=== PATIENT | female | born 1990 | race Caucasian/White ===

== ENCOUNTER 2017-06-21 21:29 | Emergency (ER) | payer OTHER ==
[~2017-06-21] VITALS: Ht 165.1 cm; Wt 75.1 kg
[2017-06-21 21:31] VITALS: BP 103/66
== END 2017-06-21 22:34 | disposition home or self-care (01) ==
LOC: ED 22:05
DX: M79.661 Pain in right lower leg (principal)
CPT/HCPCS: 99284

== ENCOUNTER 2017-09-30 10:32 | Inpatient (IN) | payer OTHER ==
[~2017-09-30] VITALS: Ht 165.1 cm; Wt 84.0 kg
[2017-09-30] MEDS ORDERED: OXYTOCIN 30U/ 0.9% NaCL 500ML 500 ML IV ONE (10:53)
[2017-09-30] MEDS ORDERED: ONDANSETRON 2MG/ML, 2ML IVPush PRN (11:00)
[2017-09-30] MEDS ORDERED: FENTANYL PF 100 MCG/2ML IVPush PRN (11:00)
[2017-09-30] MEDS ORDERED: FENTANYL PF 100 MCG/2ML IV PRN (11:00)
[2017-09-30] MEDS ORDERED: TERBUTALINE 1 MG/ML, 1ML IVPush PRN (11:00)
[2017-09-30] MEDS: LACTATED RINGERS 1,000 ML IV SCH ×2 (11:25→20:08)
[2017-09-30 11:45] LABS: MEAN CORPUSCULAR HEMOGLOBIN 29.6 pg (27.0-34.8); MEAN CORPUSCULAR HGB CONC 34.8 g/dL (32.4-35.8); MEAN CORPUSCULAR VOLUME 85.1 fL (80-100); RED BLOOD COUNT 5.02 x10^6/uL (3.82-5.3); RED CELL DISTRIBUTION WIDTH 13.5 % (9.6-15.2)
[2017-09-30] MEDS: D5%-LACTATED RINGERS 1,000 ML IV SCH ×2 (12:08→20:08)
[2017-09-30] MEDS ORDERED: MISOPROSTOL 200 MCG TABLET ONE (13:01)
[2017-09-30] MEDS ORDERED: OXYTOCIN 30U/ 0.9% NaCL 500ML 500 ML ONE ×2 (13:01→21:54)
[2017-09-30] MEDS ORDERED: LIDOCAINE/PF 1%, 30ML ONE (13:01)
[2017-09-30] MEDS ORDERED: NEWBORN KIT ONE (13:01)
[2017-09-30] MEDS ORDERED: TRANEXAMIC ACID 100 MG/ML, 10ML ONE (13:02)
[2017-09-30 13:13] LABS: BASOPHILS # (AUTO) 0.04 x10^3/uL (0-0.1); BASOPHILS % (AUTO) 1 % (0-1); EOSINOPHILS # (AUTO) 0.01 x10^3/uL (0-0.4); EOSINOPHILS % (AUTO) 0 % (1-7); LYMPHOCYTES # (AUTO) 1.73 x10^3/uL (1-3.4); LYMPHOCYTES % (AUTO) 25 % (22-44); MD SCAN; MEAN PLATELET VOLUME 10.5 fL (7.4-10.4); MONOCYTES # (AUTO) 0.51 x10^3/uL (0.2-0.8); MONOCYTES % (AUTO) 7 % (2-9); NEUTROPHILS % (AUTO) 67 % (42-75)
[2017-09-30 13:17] LABS: PLATELET COUNT 120 x10^3/uL (130-400)
[2017-09-30 13:47] LABS: INTERNATIONAL NORMALIZED RATIO 1.04 (0.93-1.1); PROTHROMBIN TIME 10.7 Seconds (9.6-11.5)
[2017-09-30] MEDS ORDERED: PROTAMINE SULFATE 10 MG/ML, 5ML IVPush ONE ×2 (16:30)
[2017-09-30 16:46] LABS: INTERNATIONAL NORMALIZED RATIO 1.02 (0.93-1.1); PROTHROMBIN TIME 10.5 Seconds (9.6-11.5)
[2017-09-30] MEDS ORDERED: CEFAZOLIN PMX 1GM/50ML 0 ML ONE (19:44)
[2017-09-30] MEDS ORDERED: CEFAZOLIN PMX 2GM/50ML 50 ML IV SCH (20:00)
[2017-09-30] MEDS: OXYTOCIN 30U/ 0.9% NaCL 500ML 500 ML IV SCH (20:53)
[2017-09-30] MEDS ORDERED: CARBOPROST TROMETHAMINE 250 MCG/ML, 1ML IM PRN (21:00)
[2017-09-30] MEDS ORDERED: CALCIUM CARBONATE 500 MG TAB.CHEW PO PRN (21:00)
[2017-09-30] MEDS ORDERED: ACETAMINOPHEN 325 MG TABLET PO PRN ×2 (21:00)
[2017-09-30] MEDS ORDERED: ONDANSETRON 2MG/ML, 2ML IV PRN (21:00)
[2017-09-30] MEDS ORDERED: HYDROcodone/APAP 5/325 TABLET PO PRN (21:00)
[2017-09-30] MEDS ORDERED: OXYcodone/APAP 5/325MG TABLET PO PRN (21:00)
[2017-09-30] MEDS ORDERED: DOCUSATE 100 MG CAPSULE PO PRN (21:00)
[2017-09-30] MEDS ORDERED: MISOPROSTOL 200 MCG TABLET PR PRN (21:00)
[2017-09-30 22:45] VITALS: BP 110/67
[2017-10-01] MEDS ORDERED: ENOXAPARIN 80 MG/0.8 ML HOMEINJ ONE ×2 (01:00)
[2017-10-01] MEDS ORDERED: ENOXAPARIN 60 MG/0.6 ML HOMEINJ SCH (02:30)
[2017-10-01 03:00] VITALS: BP 108/65
[2017-10-01] MEDS: LACTATED RINGERS 1,000 ML IV SCH ×2 (04:08→12:08)
[2017-10-01] MEDS: D5%-LACTATED RINGERS 1,000 ML IV SCH ×2 (04:08→12:08)
[2017-10-01 05:57] LABS: MEAN CORPUSCULAR HEMOGLOBIN 29.5 pg (27.0-34.8); MEAN CORPUSCULAR HGB CONC 34.7 g/dL (32.4-35.8); RED BLOOD COUNT 4.11 x10^6/uL (3.82-5.3); RED CELL DISTRIBUTION WIDTH 13.4 % (9.6-15.2)
[2017-10-01 06:46] LABS: MEAN PLATELET VOLUME 11.3 fL (7.4-10.4); PLATELET COUNT 109 x10^3/uL (130-400)
[2017-10-01 06:52] LABS: MD SCAN
[2017-10-01 06:53] LABS: BASOPHILS # (AUTO) 0.02 x10^3/uL (0-0.1); BASOPHILS % (AUTO) 0 % (0-1); EOSINOPHILS % (AUTO) 0 % (1-7); LYMPHOCYTES # (AUTO) 2.17 x10^3/uL (1-3.4); LYMPHOCYTES % (AUTO) 16 % (22-44); MONOCYTES # (AUTO) 1.39 x10^3/uL (0.2-0.8); MONOCYTES % (AUTO) 10 % (2-9); NEUTROPHILS # (AUTO) 10.37 x10^3/uL (1.8-6.8); NEUTROPHILS % (AUTO) 74 % (42-75)
[2017-10-01] MEDS: OXYTOCIN 30U/ 0.9% NaCL 500ML 500 ML IV SCH ×2 (06:53→16:53)
[2017-10-01 07:35] VITALS: BP 92/59
[2017-10-01] MEDS ORDERED: PRENATAL VIT/IRON/FA 1 EACH TABLET PO SCH (09:00)
[2017-10-01 09:20] LABS: CREATININE 0.78 mg/dL (0.55-1.02)
[2017-10-01 12:00] VITALS: BP 100/57
[2017-10-01 15:55] VITALS: BP 98/63
[2017-10-01] MEDS ORDERED: HYDR-3237 PO (16:07)
== END 2017-10-01 18:55 | disposition home or self-care (01) | DRG 775 ==
LOC: LDOP 10:32 → LDIP 10:51 → 2NW 22:20
PROVIDERS: ADMIT Obstetrics & Gynecology; ATTEND Obstetrics & Gynecology
PROC: 10E0XZZ Delivery of Products of Conception, External Approach (ICD-10-PCS; principal; 2017-09-30)
PROC: 0DQR0ZZ Repair Anal Sphincter, Open Approach (ICD-10-PCS; 2017-09-30)
DX: O99.12 Other diseases of the blood and blood-forming organs and certain disorders involving the immune mechanism complicating childbirth (principal); D68.61 Antiphospholipid syndrome; Z37.0 Single live birth; D69.6 Thrombocytopenia, unspecified; O70.20 Third degree perineal laceration during delivery, unspecified; Z3A.40 40 weeks gestation of pregnancy; Z86.718 Personal history of other venous thrombosis and embolism
CPT/HCPCS: 36415; 82565; 85025; 85384; 85610; 85730; 86850; 86900; J0690; J1650; J2590; J7120

== ENCOUNTER 2020-01-19 16:53 | Outpatient (CLI) | payer OTHER ==
[~2020-01-19] VITALS: Ht 165.1 cm; Wt 71.8 kg
[~2020-01-19 16:53] MED LIST: HYDR-3237 PO
[2020-01-19 17:27] VITALS: BP 102/62
[2020-01-19 17:35] LABS: MICROSCOPIC INDICATED
[2020-01-19 20:36] LABS: BASOPHILS % (AUTO) 0 % (0-1); EOSINOPHILS % (AUTO) 1 % (1-7); LYMPHOCYTES % (AUTO) 24 % (22-44); MEAN CORPUSCULAR HEMOGLOBIN 29.2 pg (27.0-34.8); MEAN CORPUSCULAR HGB CONC 34.6 g/dL (32.4-35.8); MEAN PLATELET VOLUME 8.1 fL (7.4-10.4); MONOCYTES % (AUTO) 7 % (2-9); NEUTROPHILS % (AUTO) 67 % (42-75); PLATELET COUNT 100 x10^3/uL (130-400); RED BLOOD COUNT 4.21 x10^6/uL (3.82-5.3); RED CELL DISTRIBUTION WIDTH 13.4 % (9.6-15.2)
[2020-01-19 20:37] LABS: MD NO
[2020-01-19 20:44] LABS: ALANINE AMINOTRANSFERASE 13 U/L (12-78); ALBUMIN 2.5 g/dL (3.4-5.0); ANION GAP 7 mmol/L (5-15); CALCIUM 8.3 mg/dL (8.5-10.1); CHLORIDE 109 mmol/L (98-107); CREATININE 0.45 mg/dL (0.55-1.02)
[2020-01-19 20:46] LABS: ALKALINE PHOSPHATASE 69 U/L (45-117); BILIRUBIN,TOTAL 0.2 mg/dL (0.2-1.0); TOTAL PROTEIN 6.4 g/dL (6.4-8.2)
== END 2020-01-19 22:16 | disposition home or self-care (01) ==
LOC: LDOP 16:53
PROVIDERS: ATTEND Obstetrics & Gynecology Maternal & Fetal Medicine
DX: O99.891 Other specified diseases and conditions complicating pregnancy (principal); N13.30 Unspecified hydronephrosis; O26.893 Other specified pregnancy related conditions, third trimester; R10.9 Unspecified abdominal pain; Z3A.31 31 weeks gestation of pregnancy
CPT/HCPCS: 59025; 76770; 80053; 81001; 83615; 85025